=== PATIENT | female | born 1970 | race Caucasian/White ===

== ENCOUNTER 2016-12-07 13:29 | Emergency (ER) | payer MEDICAID ==
[2016-12-07 13:36] VITALS: BP 123/87; PULSE 85; RESP 18; TEMP 97.9; O2SAT 97
--- NOTE | 2016-12-07 14:11 | EDPHY ---
H & P Time Seen by Provider: 12/07/16 13:53 HPI/ROS: CHIEF COMPLAINT: " I think I have a staph infection" HISTORY OF PRESENT ILLNESS: 46-year-old immunocompetent female history of recurrent skin infections, believes she has a staff related lesion on her right inferior buttock present for several weeks on and off. She has been picking in puncturing the area on her own. Her tetanus is up-to-date. She has had no pain with defecation, no blood i or pus in stool. No fever no chills no nausea no vomiting PHYSICAL EXAM (Prior to examination, patient consented to physical exam, hands were washed and my usual and customary physical exam procedures followed) 1) GENERAL: Well-developed, well-nourished, alert and oriented. Appears to be in no acute distress. 2) HEAD: Normocephalic 3) HEENT: sclera anicteric 4) LUNGS: Breathing comfortably. 5) SKIN: with female nurse tin flopper Brittny at bedside patient's genitalia is examined, she has a single indurated firm erythematous tender carbuncle in the right inferior buttock with no extension to the perianal region, no extension of the perineum, no extension to the labia. No crepitus Smoking Status: Current every day smoker Constitutional: Initial Vital Signs Temperature (C) 36.6 C 12/07/16 13:33 Heart Rate 85 12/07/16 13:33 Respiratory Rate 18 12/07/16 13:33 Blood Pressure 123/87 H 12/07/16 13:33 O2 Sat (%) 97 12/07/16 13:33 O2 Delivery Mode Room Air Allergies/Adverse Reactions: naproxen Allergy (Verified 12/07/16 13:33) Home Medications: Medication Instructions Recorded Cephalexin [Keflex] 500 mg PO QID 10 Days 12/07/16 Levothyroxine 12/07/16 Sulfamethox/Tmp 800/160 mg 1 tab PO BID@1000,2200 10 Days 12/07/16 [Bactrim Ds] ED Images - Extremities Legs Front/Back: 1 - Carbuncle MDM/Departure - [facility] ED Course/Re-evaluation: This is a firm lesion. Doubt abscess. I have recommended warm compresses. I recommend she avoid further picking her puncturing of the area. Doubt perianal abscess. Started on dual therapy of Bactrim and Keflex given history of recurrent skin infection. Tetanus up-to-date. [facility] - Depart Disposition: Home, Routine, Self-Care Clinical Impression: Recurrent carbunculosis Condition: Good Instructions: Furunculosis and Carbunculosis (ED) Additional Instructions: Apply warm packs to the area 3 times a day. Do not take pick or punture the area. Return if you develop fevers, nausea, vomiting or any other symptoms that concern you. Prescriptions: Cephalexin [Keflex] 500 mg PO QID 10 Days Sulfamethox/Tmp 800/160 mg [Bactrim Ds] 1 tab PO BID@1000,2200 10 Days Referrals: [facility],. [Clinic] - 2-3 days, call for appt.
== END 2016-12-07 14:47 | disposition home or self-care (01) ==
DX: L02.32 Furuncle of buttock (principal); F17.200 Nicotine dependence, unspecified, uncomplicated

== ENCOUNTER 2017-03-12 15:54 | Emergency (ER) | payer MEDICAID ==
[2017-03-12 16:13] VITALS: RESP 16; TEMP 97.9
--- NOTE | 2017-03-12 16:45 | EDPHY ---
H & P Stated Complaint: R hip pain x 1 week no known trauma Time Seen by Provider: 03/12/17 16:45 HPI/ROS: CHIEF COMPLAINT: Right hip pain HISTORY OF PRESENT ILLNESS: The patient presents to the ED with referred right hip pain. She has a history of chronic low back pain and radiculopathy. She has a history of spinal surgery x3. The patient attributes her symptoms to increased activity at work. She denies any acute weakness. She denies bowel or bladder dysfunction. She denies fever. The patient takes no regular medications. She recently moved to [place] and has yet to establish primary care. The patient denies any additional complaints. She is able to fully weight bear without discomfort in the hip. REVIEW OF SYSTEMS: A comprehensive 10 point review of systems is otherwise negative aside from elements mentioned in the history of present illness. Source: Patient Exam Limitations: No limitations - Personal History LMP (Females 10-55): Unknown Current Tetanus/Diphtheria Vaccine: Unsure Current Tetanus Diphtheria and Acellular Pertussis (TDAP): Unsure - Medical/Surgical History Hx Asthma: No Hx Chronic Respiratory Disease: No Hx Diabetes: No Hx Cardiac Disease: No Hx Renal Disease: No Hx Cirrhosis: No Hx Alcoholism: No Hx HIV/AIDS: No Hx Splenectomy or Spleen Trauma: No Other PMH: back surgery l4-5 fusion, DJD - Social History Smoking Status: Current every day smoker - Physical Exam Exam: General Appearance: Alert, no distress Eyes: Pupils equal and round no pallor or injection ENT, Mouth: Mucous membranes moist Respiratory: There are no retractions, lungs are clear to auscultation Cardiovascular: Regular rate and rhythm Gastrointestinal: Abdomen is soft and nontender, no masses, bowel sounds normal Neurological: 5/5 strength bilateral lower extremities, no clonus, no footdrop , sensation intact to light touch, no saddle anesthesia Skin: Warm and dry, no rashes Musculoskeletal: Tenderness to palpation in the right sacroiliac joint, surgical incision clean dry and intact Extremities: symmetrical, full range of motion Psychiatric: Patient is oriented X 3, there is no agitation Constitutional: Initial Vital Signs Temperature (C) 36.6 C 03/12/17 16:11 Heart Rate 81 03/12/17 16:11 Respiratory Rate 16 03/12/17 16:11 Blood Pressure 167/100 H 03/12/17 16:11 O2 Sat (%) 97 03/12/17 16:11 O2 Delivery Mode Room Air Allergies/Adverse Reactions: naproxen Allergy (Verified 12/07/16 13:33) Home Medications: Medication Instructions Recorded Cyclobenzaprine [Flexeril 10 MG 10 mg PO TID PRN #15 tab 03/12/17 (*)] Levothyroxine 03/12/17 methylPREDNISolone [Medrol Dose 1 each PO AD #1 ea 03/12/17 Keo] Medical Decision Making ED Course/Re-evaluation: The patient presents to the ED with acute sciatica and likely radiculopathy from her lumbar spine. She has no evidence of significant weakness noted on exam. She is ambulatory with a normal gait. She has no evidence of a cauda equina type syndrome. The patient underwent serial examinations in the emergency department. She will be discharged home with a Solu-Medrol Dosepak and a prescription for Flexeril. The patient is referred to our on-call spine surgeon for further care in her chronic back issues as well as our local clinic for primary care. Departure - Departure Disposition: Home, Routine, Self-Care Clinical Impression: Sciatica Condition: Good Instructions: Sciatica (ED) Additional Instructions: 1. Steroid pack as directed. 2. Flexeril as needed for muscle relaxation. 3. Take Ibuprofen or Motrin 600 mg by mouth three times a day. 4. You have been given the contact number of Dr. Wahl our spine surgeon who would be happy to see you in follow-up. 5. You have been given the contact number for [facility] if you wish to establish primary care locally. Referrals: [facility],. [Clinic] - As per Instructions Quinton Wahl MD [Medical Doctor] - As per Instructions
[2017-03-12 17:43] VITALS: BP 176/89; PULSE 85; O2SAT 96
== END 2017-03-12 17:44 | disposition home or self-care (01) ==
DX: M54.30 Sciatica, unspecified side (principal); F17.200 Nicotine dependence, unspecified, uncomplicated